=== PATIENT | female | born 1995 | race African-American/Black ===

== ENCOUNTER 2016-07-23 21:17 | Emergency (ER) | payer OTHER ==
[~2016-07-23] VITALS: Ht 172.7 cm; Wt 63.5 kg
[~2016-07-23 21:17] MED LIST: AMITRIPTYLINE H50 M2 PO; CYCLOBENZAPRINE10 M2 PO; ENDOCET 325 MG-1 TA1 PO; ERYTHROMYCIN1 GM OPH; FIORICET 325 MG1 TAB PO; FLEXERIL10 MG PO; HYDROXYZINE50 MG PO; IBUPROFEN600 MG PO; IMITREX25 M1 PO; IMITREX25 MG PO; IMITREX50 MG PO; LIDOCAINE VISCO20 ML PO; LO LOESTRIN FE1 TAB PO; MEDROL DOSEPAK1 PAC PO; MOTRIN 600 MG600 MG PO; PERCOCET 325 MG1 TA2 PO; PERCOCET 5-3251 EACH PO; PREDNICOT20 MG PO; SUMATRIPTAN SUC25 MG PO; TOPAMAX25 MG PO; ZITHROMAX Z-PA250 M1 PO; ZOFRAN ODT4 MG PO; ZOFRAN4 M2 PO
--- NOTE | 2016-07-23 22:23 | ED GI/GU/ABDOMINAL COMPLAINT ---
History of Present Illness General Chief Complaint: Nausea, Vomiting, Diarrhea Stated Complaint: +NVD Source: patient, family (MOTHER) Exam Limitations: no limitations Allergies Coded Allergies: nut - unspecified (Severe, ANAPHALACTIC 12/06/15) strawberry (ITCHY 12/06/15) Reconcile Medications Amitriptyline HCl 50 MG TABLET 1 TAB PO QPM NERVES (Reported) Erythromycin Base (Erythromycin) 1 GM OINT...G. 1 FERNANDO OPH 4XDP BLEPHARITIS apply 1 cm ribbon into the lower conjunctival sac Metoclopramide HCl (Reglan) 10 MG TABLET 1 TAB PO 4 TIMES/DAY PRN NAUSEA 30 minutes before meals and bedtime Mirtazapine 7.5 MG TABLET 7.5 MG PO DAILY SLEEP HELP (Reported) NORETHINDRONE-E.ESTRADIOL-IRON (Lo Loestrin Fe 1-10 Tablet) 1MG-10(24) TABLET 1 TAB PO DAILY MENSTRUAL REGULARITY (Reported) Ondansetron HCl (Zofran) 4 MG TABLET 1 TAB PO Q6-8P PRN NAUSEA Oseltamivir Phosphate (Tamiflu) 30 MG CAPSULE 2 CAP PO BID INFLUENZA A Oxycodone HCl/Acetaminophen (Percocet 5-325 MG Tablet) 1 EACH TABLET 1 TAB PO Q4-6 PRN PAIN Sumatriptan Succinate (Imitrex) 25 MG TABLET 1 TAB PO DAILY PRN MIGRAINE Triage Note: RECEIVED 20 YO FEMALE FEVER AND CHILLS X 2 DAYS WITH NAUSEA AND VOMITING X ONE TODAY. NO DIARRHEA. PT REPORTS PAINN ALL OVER. Triage Nurses Notes Reviewed? yes ? N Is pt currently ? No HPI: This patient is a 20-year-old female with a past medical history including migraine headaches who presented to the emergency department today for evaluation of nausea and vomiting 2 days. The patient reported that her mother was recently sick with a GI bug. Her symptoms began approximately 2 days ago with nausea and body aches. She also reported central abdominal pain which she rates at a 10 out of 10. It is sharp and nonradiating. It is constant. The patient reported that she vomited once today with no blood in the vomitus. She reported that she had a temperature today to 104F. She saw her doctor who gave her Tylenol. The patient reported chills. She denied any chest pain, difficulty breathing, back pain, constipation, diarrhea, urinary burning, urgency, frequency, or blood in the urine. (MALGORZATA TURNER PA-C) Vital Signs & Intake/Output Vital Signs & Intake/Output ED Intake and Output 07/24 0000 07/23 1200 Intake Total 1100 Output Total Balance 1100 Intake, IV 1100 Patient 140 lb Weight Past History Travel History Traveled to [place] past 21 day No Medical History Any Pertinent Medical History? 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 No (MALGORZATA TURNER PA-C) Review of Systems Review of Systems Constitutional: Reports: see HPI. EENTM: Reports: no symptoms. Respiratory: Reports: no symptoms. Cardiovascular: Reports: no symptoms. GI: Reports: see HPI. Genitourinary: Reports: no symptoms. Musculoskeletal: Reports: see HPI. Skin: Reports: no symptoms. Neurological/Psychological: Reports: no symptoms. All Other Systems: Reviewed and Negative (MALGORZATA TURNER PA-C) Physical Exam Physical Exam Gastrointestinal: normal bowel sounds, soft, no organomegaly, NO REBOUND OR GUARDING. RIGHT UPPER QUADRANT TENDERNESS. NO MCBURNY'S POINT TENDERNESS. NEGATIVE ROVSING SIGN. NEGATIVE PSOAS SIGN. NO MASSES APPRECIATED. NONDISTENDED Comments: Well-developed well-nourished person in mild distress HEENT: Normal EENT exam, moist mucous membranes Pupils equally round and reactive to light. Neck: Supple, no lymphadenopathy Back: Normal gait. Normal inspection. No CVA tenderness Cardiovascular: Tachycardic with a regular rhythm and no murmurs Respiratory: No respiratory distress. Breath sounds clear to auscultation bilaterally Extremity: Normal and equal pulses Neuro: Alert oriented x3, cranial nerves II through XII grossly intact. Skin: No appreciable rash on exposed skin, skin is warm and dry. Psych: Mood and affect is normal Core Measures ACS in differential dx? No Severe Sepsis Present: No Septic Shock Present: No (MALGORZATA TURNER PA-C) Progress Differential Diagnosis: AMI, appendicitis, biliary colic, bowel obstruction, colon cancer, cholecystitis, diverticulitis, ectopic , endometritis, gastritis, hepatitis, ischemic bowel, inflamm bowel dis, intrauterine , kidney stone, ovarian cyst, ovarian torsion, pancreatitis, PID/cervicitis, PUD/ GERD, perforated viscous, threatened AB, UTI/pyelo Initial ED EKG: none Comments: 07/23/2016 11:47:13 PM: The patient reported that she is feeling better and requesting to go home at this time. Influenza positive. We will start her on Tamiflu and give her outpatient supportive management. Instructed to follow up with her primary care physician and return for any worsening symptoms. (MALGORZATA TURNER PA-C) Plan of Care: Orders Procedure Date/time Status VIRAL CULTURE 07/23 2158 Active Departure Departure Disposition: HOME OR SELF CARE Condition: Stable Clinical Impression Primary Impression: Influenza Referrals: LITZY PANG MD (PCP/Family) Additional Instructions: TAKE TAMIFLU PRESCRIBED. TAKE REGLAN PRESCRIBED FOR NAUSEA. STAY HYDRATED. REST. RETURN FOR ANY WORSENING SYMPTOMS OR CONCERNS. Departure Forms: Customer Survey General Discharge Information Prescriptions: Current Visit Scripts Metoclopramide HCl (Reglan) 1 TAB PO 4 TIMES/DAY PRN NAUSEA #16 TAB 30 minutes before meals and bedtime Oseltamivir Phosphate (Tamiflu) 2 CAP PO BID #20 CAP (MALGORZATA TURNER PA-C) PA/FIELD OPERATOR Co-Sign Statement Statement: ED Attending supervision documentation- [] I saw and evaluated the patient. I have also reviewed all the pertinent lab results and diagnostic results. I agree with the findings and the plan of care as documented in the PA's/FIELD OPERATOR's documentation. [X] I have reviewed the ED Record and agree with the PA's/FIELD OPERATOR's documentation. [] Additions or exceptions (if any) to the PAs/FIELD OPERATOR's note and plan are summarized below: [] (ASHOK FISHER,APRIL Henley) Disposition: HOME OR SELF CARE Condition: Stable Clinical Impression Primary Impression: Influenza Referrals: LITZY PANG MD (PCP/Family) Additional Instructions: TAKE TAMIFLU PRESCRIBED. TAKE REGLAN PRESCRIBED FOR NAUSEA. STAY HYDRATED. REST. RETURN FOR ANY WORSENING SYMPTOMS OR CONCERNS. Departure Forms: Customer Survey General Discharge Information Prescriptions: Current Visit Scripts Metoclopramide HCl (Reglan) 1 TAB PO 4 TIMES/DAY PRN NAUSEA #16 TAB 30 minutes before meals and bedtime Oseltamivir Phosphate (Tamiflu) 2 CAP PO BID #20 CAP (MALGORZATA TURNER PA-C) PA/FIELD OPERATOR Co-Sign Statement Statement: ED Attending supervision documentation- [] I saw and evaluated the patient. I have also reviewed all the pertinent lab results and diagnostic results. I agree with the findings and the plan of care as documented in the PA's/FIELD OPERATOR's documentation. [X] I have reviewed the ED Record and agree with the PA's/FIELD OPERATOR's documentation. [] Additions or exceptions (if any) to the PAs/FIELD OPERATOR's note and plan are summarized below: [] (ASHOK FISHER,APRIL Henley)
[2016-07-23 22:51] LABS: ABSOLUTE BASOPHIL COUNT 0 /CUMM (0.0-0.2); ABSOLUTE EOSINOPHIL COUNT 0 /CUMM (0.0-0.7); ABSOLUTE GRANULOCYTE CT 3.4 /CUMM (1.4-6.5); ABSOLUTE LYMPH COUNT 0.6 /CUMM (1.2-3.4); ABSOLUTE MONOCYTE COUNT 0.6 /CUMM (0.10-0.60); BASOPHIL % 0.2 % (0.0-2.0); EOSINOPHIL % 0.1 % (0-5); HEMATOCRIT 38.9 % (37-47); MEAN CORPUSCULAR HGB 28.8 PG (27.0-31.0); MEAN CORPUSCULAR VOLUME 84.8 FL (81.0-99.0); MEAN PLATELET VOLUME 7.4 FL (7.4-10.4); PLATELET COUNT 293 /CUMM (130-400); RBC DISTRIBUTION WIDTH 12.7 % (11.5-14.5); RED BLOOD CELL CT 4.59 /CUMM (4.20-5.40); WHITE BLOOD CELL COUNT 4.7 /CUMM (4.8-10.8)
[2016-07-23 22:52] LABS: GRANULOCYTE % 72.5 % (42.2-75.2)
[2016-07-23] MEDS ORDERED: REGLAN10 M1 PO (23:15)
[2016-07-23] MEDS ORDERED: TAMIFLU30 M1 PO (23:15)
[2016-07-23 23:18] VITALS: BP 146/76
[2016-07-23] MEDS ORDERED: MIRTAZAPINE7.5 M1 PO (23:25)
== END 2016-07-23 23:54 ==
LOC: ERH 21:17
PROVIDERS: Physician Assistant
DX: J11.1 Influenza due to unidentified influenza virus with other respiratory manifestations (principal)
CPT/HCPCS: 81025; 87804; 87804-59; 96361; 96374; J2765

== ENCOUNTER 2016-12-25 01:13 | Emergency (ER) | payer OTHER ==
[~2016-12-25] VITALS: Ht 182.9 cm; Wt 68.0 kg
[~2016-12-25 01:13] MED LIST changes: +MIRTAZAPINE7.5 M1 PO; +REGLAN10 M1 PO; +TAMIFLU30 M1 PO
--- NOTE | 2016-12-25 03:11 | ED HEADACHE COMPLAINT ---
History of Present Illness General Chief Complaint: Headache Stated Complaint: PT C/O MIGRAINE HX OF SAME Source: patient Exam Limitations: no limitations Vital Signs & Intake/Output Vital Signs & Intake/Output Vital Signs Date Time Temp Pulse Resp B/P B/P Pulse O2 O2 Flow FiO2 Mean Ox Delivery Rate 12/25 0401 96.8 77 18 126/78 99 Room Air 12/25 0249 Room Air 12/25 0245 96.8 90 18 140/81 100 Room Air Allergies Coded Allergies: nut - unspecified (Severe, ANAPHALACTIC 12/06/15) strawberry (ITCHY 12/06/15) Reconcile Medications Amitriptyline HCl 50 MG TABLET 1 TAB PO QPM NERVES (Reported) Erythromycin Base (Erythromycin) 1 GM OINT...G. 1 FERNANDO OPH 4XDP BLEPHARITIS apply 1 cm ribbon into the lower conjunctival sac Metoclopramide HCl (Reglan) 10 MG TABLET 1 TAB PO 4 TIMES/DAY PRN NAUSEA 30 minutes before meals and bedtime Mirtazapine 7.5 MG TABLET 7.5 MG PO DAILY SLEEP HELP (Reported) NORETHINDRONE-E.ESTRADIOL-IRON (Lo Loestrin Fe 1-10 Tablet) 1MG-10(24) TABLET 1 TAB PO DAILY MENSTRUAL REGULARITY (Reported) Ondansetron HCl (Zofran) 4 MG TABLET 1 TAB PO Q6-8P PRN NAUSEA Oseltamivir Phosphate (Tamiflu) 30 MG CAPSULE 2 CAP PO BID INFLUENZA A Oxycodone HCl/Acetaminophen (Percocet 5-325 MG Tablet) 1 EACH TABLET 1 TAB PO Q4-6 PRN PAIN Sumatriptan Succinate (Imitrex) 25 MG TABLET 1 TAB PO DAILY PRN MIGRAINE Triage Note: PT TO TRIAGE C/O MIGRAINE AND PHOTOSENSITIVITY. HX OF SAME. TOOK PERCOCET AND IMITREX WITHOUT RELIEF. Triage Nurses Notes Reviewed? yes Onset: Gradual Duration: hour(s): Timing: recent history Quality/Severity: moderate Head Injury Location: global Modifying Factors: Improves With: medication, rest. Associated Symptoms: nausea/vomiting : No Patient currently breastfeeds: No HPI: 21-year-old woman, history of migraine headaches, presents with a headache typical of her more serious migraines. She has had a headache since yesterday. She notes photophobia and nausea. It began after work. She has no vision change his fevers chills dizziness focal weakness or numbness. She states that she took a Percocet at home and it did not clyde her headache. She is here for further care. She has no other concerns and is otherwise well. Past History Travel History Traveled to [place] past 21 day No Medical History Any Pertinent Medical History? 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 No Review of Systems Review of Systems Constitutional: Reports: no symptoms, see HPI, chills, diaphoresis, fever, malaise, weakness, unexplained weight loss. Physical Exam Physical Exam General Appearance: well developed/nourished, alert Head: atraumatic, normal appearance, diffuse tenderness at scalp musculature. tender to palpation at the insertion of the cervical musculature to the occiput. Eyes: Bilateral: normal appearance, PERRL, EOMI. Ears, Nose, Throat: normal pharynx, normal ENT inspection, hearing grossly normal Neck: normal inspection, supple, full range of motion Respiratory: chest non-tender, no respiratory distress Cardiovascular: regular rate/rhythm Gastrointestinal: normal bowel sounds, soft, non-tender Back: normal inspection Extremities: normal inspection, normal capillary refill, normal range of motion, no edema Psychiatric: awake, alert, oriented x 3 Cranial Nerves: normal hearing, normal speech, PERRL Coordination/Gait: normal finger to nose, normal gait Motor/Sensory: no motor/sensory deficits Reflexes: 1+: bicep (R), bicep (L). Skin: intact, normal color, warm/dry Core Measures Severe Sepsis Present: No Septic Shock Present: No Progress Differential Diagnosis: cluster GRACE, meningitis, migraine GRACE, musculoskeletal pain, sinusitis, tension GRACE, TMJ syndrome Plan of Care: pt given supportive medications in ED. pt felt better and is safe for discharge. Departure Departure Disposition: HOME OR SELF CARE Condition: Stable Clinical Impression Primary Impression: Headache Referrals: LITZY PANG MD (PCP/Family) Departure Forms: Customer Survey General Discharge Information Comments see above.
[2016-12-25 04:01] VITALS: BP 126/78
== END 2016-12-25 04:02 ==
LOC: ERH 01:13
DX: R51 Headache (principal)
CPT/HCPCS: 96372; J1885; J3030; J3101